=== PATIENT | female | born 1965 | race African-American/Black ===

== ENCOUNTER 2016-09-13 13:38 | Emergency (ER) | payer OTHER ==
[~2016-09-13] VITALS: Ht 154.9 cm; Wt 68.0 kg
[~2016-09-13 13:38] MED LIST: IBUPROFEN600 MG ORAL; TRAMADOL HCL50 MG ORAL
--- NOTE | 2016-09-13 14:25 | Emergency Room Report ---
History of Present Illness General Chief Complaint: Multiple Trauma/Fall Source: Patient Present Illness HPI Patient is a 50-year-old female who presented after a slip and fall. Patient stated that she fell from a standing position yesterday after slipping [place] a movie theater. The patient denied loss of consciousness. She reported having some pain to the left side of her upper back. Patient denied any numbness or weakness to her extremities. Patient had previous history of right knee surgery and complained of some difficulty walking. Patient did not take any pain medications. Allergies: Coded Allergies: No Known Allergies (Unverified , 01/25/16) Patient History Past Medical History: see triage record Last Menstrual Period: 12-18 Now: No Reviewed Nursing Documentation: PMH: Agreed, PSxH: Agreed Nursing Documentation-PMH Past Medical History: No History, Except For Hx Cardiac Problems: Yes - anemia Review of Systems All Other Systems: negative except mentioned in HPI Physical Exam Vital Signs Date Time Temp Pulse Resp B/P Pulse Ox O2 Delivery O2 Flow Rate FiO2 09/13/16 14:05 98.6 86 18 160/98 100 Room Air Sp02 EP Interpretation: reviewed, normal General Appearance: normal inspection, well appearing, no apparent distress, alert, GCS 15, non-toxic Head: atraumatic ENT: normal ENT inspection, hearing grossly normal, normal voice Neck: normal inspection, full range of motion, supple, no bony tend Respiratory: normal inspection, lungs clear, normal breath sounds, no respiratory distress, no retraction, no wheezing Cardiovascular #1: regular rate, rhythm, no edema Gastrointestinal: normal inspection, normal bowel sounds, non tender, soft, no guarding, no hernia Genitourinary: no CVA tenderness Musculoskeletal: normal inspection, back normal, normal range of motion Neurologic: normal inspection, alert, oriented x3, responsive, blue crabber III-XII nml as tested, speech normal Psychiatric: normal inspection, judgement/insight normal, mood/affect normal Skin: normal inspection, normal color, no rash Medical Decision Making Diagnostic Impression: Primary Impression: Fall Additional Impressions: Back strain Knee contusion ER Course Patient presented for fall.Differential diagnosis included was not limited to neck fracture, CVA, close head injury, syncopal episode, basilar ischemia. The patient appears to have mostly soft tissue injuries. There is no evidence of a syncopal episode. Patient was given ibuprofen. X-ray imaging of the thoracic spine 2 views interpreted by me showed no bony alignment without fracture; degenerative changes were noted. Patient was noted to be a ambulatory without assistance. The patient is advised followup with her primary care physician for reexamination. Last Vital Signs Date Time Temp Pulse Resp B/P Pulse Ox O2 Delivery O2 Flow Rate FiO2 09/13/16 14:05 98.6 86 18 160/98 100 Room Air Status: improved Disposition: HOME, SELF-CARE Condition: Stable Scripts Ibuprofen* (MOTRIN*) 600 Mg Tablet 600 MG ORAL Q8H Y for For Pain, #30 TAB 0 Refills Prov: Enoc Sylvester 09/13/16 Enoc Sylvester Sep 13, 2016 14:25
[2016-09-13] MEDS ORDERED: IBUPROFEN600 MG ORAL (15:01)
[2016-09-13 15:43] VITALS: BP 140/87
[2016-09-13 15:46] VITALS: BP 140/87
--- NOTE | 2016-09-14 11:41 | Diagnostic Imaging Report ---
Indication: Back pain Findings: 2 views of the thoracic spine were obtained. Normal bony mineralization and alignment are demonstrated. Vertebral body heights and intervertebral disc heights are normal. Mild endplate osteophytes are present. The posterior elements including the facets are unremarkable. Soft tissues are unremarkable. Impression: No acute injury
== END 2016-09-13 16:00 | disposition home or self-care (01) ==
LOC: EMR 15:55
DX: S29.012A Strain of muscle and tendon of back wall of thorax, initial encounter (principal); S80.01XA Contusion of right knee, initial encounter; W01.0XXA Fall on same level from slipping, tripping and stumbling without subsequent striking against object, initial encounter; Y92.254 Theater (live) as the place of occurrence of the external cause
CPT/HCPCS: 72070; 99283

== ENCOUNTER 2017-03-05 14:32 | Emergency (ER) | payer OTHER ==
[~2017-03-05] VITALS: Ht 154.9 cm; Wt 70.3 kg
[2017-03-05] MEDS ORDERED: Ketorolac 30mg Inj IM ONE (15:00)
[2017-03-05] MEDS ORDERED: IBUPROFEN600 MG ORAL (15:26)
[2017-03-05] MEDS ORDERED: ROBAXIN-750750 MG PO (15:26)
[2017-03-05 15:30] VITALS: BP 143/78
--- NOTE | 2017-03-05 16:32 | Emergency Room Report ---
History of Present Illness General Chief Complaint: Back Injury Present Illness HPI The patient is a 51-year-old female presenting for pain after falling. She states that she tripped in a restaurant 2 days prior and fell onto her back. Pain has continued and is currently a 10 out of 10 dull ache primarily to the mid and upper back. Does not radiate. Worse with movement. She denies any numbness or tingling. She has tried Motrin at home which has not helped. She denies hitting head or loss of consciousness. She denies any other symptoms including nausea, vomiting, fever, chills, dizziness, blurred vision, shortness of breath, chest pain Allergies: Coded Allergies: No Known Allergies (Unverified , 01/25/16) Patient History Past Medical History: see triage record Pertinent Family History: none Reviewed Nursing Documentation: PMH: Agreed, PSxH: Agreed Nursing Documentation-PMH Hx Cardiac Problems: Yes - anemia Review of Systems All Other Systems: negative except mentioned in HPI Physical Exam Vital Signs Date Time Temp Pulse Resp B/P Pulse Ox O2 Delivery O2 Flow Rate FiO2 03/05/17 14:36 97.9 89 20 151/89 99 Room Air Sp02 EP Interpretation: reviewed, normal General Appearance: no apparent distress, alert, GCS 15, non-toxic Head: normocephalic, atraumatic Eyes: bilateral eye PERRL, bilateral eye normal inspection ENT: hearing grossly normal, normal pharynx, no angioedema, normal voice Neck: full range of motion, no bony tend, supple/symm/no masses, tender lateral - bilat paraspinal muscles Respiratory: chest non-tender, lungs clear, normal breath sounds, speaking full sentences Musculoskeletal: normal range of motion, tender - TTP over bilat trapezia as well as thoracic paraspinal muscles Neurologic: alert, oriented x3, responsive, motor strength/tone normal, sensory intact, speech normal Psychiatric: judgement/insight normal, memory normal, mood/affect normal, no suicidal/homicidal ideation Skin: normal turgor, other - Ecchymosis of the L bicep Lymphatic: no adenopathy Medical Decision Making PA Attestation Dr. Jacobson is my supervising physician. Patient management was discussed with my supervising physician Diagnostic Impression: Primary Impression: Muscle strain Additional Impression: Contusion of arm, left Qualified Codes: S40.022A - Contusion of left upper arm, initial encounter ER Course The patient is a 51-year-old female presenting for pain after falling. Ddx considered include but not limited to sprain/strain, disc herniation, fracture, contusion, among others PE: NAD Head is normocephalic atraumatic. Neck is soft and supple. No midline tenderness or step-offs. There is bilateral paraspinal tenderness. There is bilateral tenderness over the trapezii as well as thoracic paraspinal muscles. There is ecchymosis to the left biceps. Otherwise exam unremarkable The patient is given Motrin for pain in the emergency department and will be given a prescription for both Motrin and Robaxin. She will follow up with primary doctor. ER precautions are given Last Vital Signs Date Time Temp Pulse Resp B/P Pulse Ox O2 Delivery O2 Flow Rate FiO2 03/05/17 15:30 72 18 143/78 98 Room Air 03/05/17 14:36 97.9 Status: improved Disposition: HOME, SELF-CARE Condition: Improved Scripts Methocarbamol* (ROBAXIN-750*) 750 Mg Tablet 750 MG PO TID, #21 TAB 0 Refills Prov: EVELINA MENDES.Zia 03/05/17 Ibuprofen* (MOTRIN*) 600 Mg Tablet 600 MG ORAL Q8H Y for For Pain, #30 TAB 0 Refills Prov: EVELINA MENDES.Avni. 03/05/17 Referrals: [facility],REFERRING (PCP) Patient Instructions: Back Pain, Adult, Contusion Additional Instructions: I discussed my findings with the patient. All questions and concerns have been answered. Treatment and medication compliance have been addressed. I advised the patient that they need to follow up with PMD in 3-5 days. Return to ED if pain remains or worsens, numbness or tingling occurs, or if needed for any reason. Patient verbalized understanding of discharge instructions. EVELINA MENDES Mar 05, 2017 16:32
== END 2017-03-05 15:36 | disposition home or self-care (01) ==
LOC: EMR 15:08
DX: M54.9 Dorsalgia, unspecified (principal); S40.022A Contusion of left upper arm, initial encounter; W19.XXXA Unspecified fall, initial encounter; Y93.9 Activity, unspecified; Y92.511 Restaurant or cafe as the place of occurrence of the external cause; T14.8 Other injury of unspecified body region
CPT/HCPCS: 96372; 99284; J1885